=== PATIENT | female | born 1975 | race Caucasian/White ===

== ENCOUNTER 2018-06-23 10:10 | Emergency (ER) | payer MEDICAID ==
[2018-06-23] MEDS: ACETAMINOPHEN 500 MG TAB PO (14:07)
[2018-06-23] MEDS: KETOROLAC 60 MG INJ IM (14:08)
== END 2018-06-23 14:21 | disposition home or self-care (01) ==
LOC: FTE 10:10
DX: R51 Headache (principal)
CPT/HCPCS: 81025; 96372; 99284-25

== ENCOUNTER 2018-09-06 08:36 | Emergency (ER) | payer MEDICAID ==
[2018-09-06] MEDS: KETOROLAC 60 MG INJ IM (09:44)
== END 2018-09-06 11:10 | disposition home or self-care (01) ==
LOC: FTE 08:36
DX: M77.8 Other enthesopathies, not elsewhere classified (principal); Z79.82 Long term (current) use of aspirin
CPT/HCPCS: 73080; 73080-RT; 81025; 96372; 99284-25